=== PATIENT | female | born 1975 | race Two or more races ===

== ENCOUNTER 2019-12-03 15:12 | Emergency (ER) | payer SELFPAY ==
[~2019-12-03] VITALS: Ht 162.6 cm; Wt 79.0 kg
[2019-12-03 15:29] VITALS: BP 147/75
== END 2019-12-03 16:16 | disposition home or self-care (01) ==
LOC: ED 16:00
DX: J06.9 Acute upper respiratory infection, unspecified (principal)
CPT/HCPCS: 71046; 99283

== ENCOUNTER 2020-06-02 16:10 | Emergency (ER) | payer SELFPAY ==
[~2020-06-02] VITALS: Ht 162.6 cm; Wt 82.9 kg
--- NOTE | 2020-06-02 16:45 | NUR ---
this is a 44 yr old female. came in to the er due to what she discribes as sob and panic attacks. pt states she can't breathe through her nose and it gets worse at night. pt states she has had relief from hot showers and nasal mist. other than afrin pt denies any other nasal decongestant. pt on cardiac, nibp and o2 monitoring,. call light in reach. magali
[2020-06-02 18:41] VITALS: BP 110/90
== END 2020-06-02 18:43 | disposition home or self-care (01) ==
LOC: ED 18:35
DX: J02.9 Acute pharyngitis, unspecified (principal); R06.00 Dyspnea, unspecified; M79.10 Myalgia, unspecified site; R05 Cough; R09.89 Other specified symptoms and signs involving the circulatory and respiratory systems; R94.31 Abnormal electrocardiogram [ECG] [EKG]
CPT/HCPCS: 71045; 93005; 99283

== ENCOUNTER 2020-09-12 15:26 | Emergency (ER) | payer SELFPAY ==
[~2020-09-12] VITALS: Ht 162.6 cm; Wt 78.9 kg
[2020-09-12 15:44] VITALS: BP 140/97
== END 2020-09-12 16:47 | disposition home or self-care (01) ==
LOC: ED 16:40
DX: B34.9 Viral infection, unspecified (principal); Z20.828 Contact with and (suspected) exposure to other viral communicable diseases; F17.200 Nicotine dependence, unspecified, uncomplicated
CPT/HCPCS: 36415; 87635; 99283

== ENCOUNTER 2020-11-02 20:03 | Inpatient (IN) | payer OTHER ==
[~2020-11-02] VITALS: Ht 162.6 cm; Wt 70.6 kg
--- NOTE | 2020-11-02 20:59 | NUR ---
PT AMBULATORY TO BATHROOM FOR UA, STEADY GAIT.
[2020-11-02 21:13] LABS: BASOPHILS % (AUTO) 1 % (0-1); EOSINOPHILS % (AUTO) 4 % (1-7); LYMPHOCYTES % (AUTO) 26 % (22-44); MEAN CORPUSCULAR HEMOGLOBIN 21.5 pg (27.0-34.8); MEAN CORPUSCULAR HGB CONC 31.4 g/dL (32.4-35.8); MEAN PLATELET VOLUME 7.7 fL (7.4-10.4); MONOCYTES % (AUTO) 8 % (2-9); NEUTROPHILS % (AUTO) 61 % (42-75); PLATELET COUNT 283 x10^3/uL (130-400); RED BLOOD COUNT 4.52 x10^6/uL (3.82-5.3); RED CELL DISTRIBUTION WIDTH 17.4 % (9.6-15.2)
[2020-11-02 21:14] LABS: ALBUMIN 3.4 g/dL (3.4-5.0); ANION GAP 4 mmol/L (5-15); CHLORIDE 110 mmol/L (98-107)
[2020-11-02 21:17] LABS: ALANINE AMINOTRANSFERASE 25 U/L (12-78); ALKALINE PHOSPHATASE 88 U/L (45-117); BILIRUBIN,TOTAL 0.3 mg/dL (0.2-1.0); CREATININE 0.84 mg/dL (0.55-1.02)
[2020-11-02 21:28] LABS: MICROSCOPIC INDICATED
[2020-11-02 21:30] LABS: MD NO
[2020-11-02] MEDS ORDERED: OMNIPAQUE 350 MG/ML, 100ML BOTTLE ONE (21:30)
--- NOTE | 2020-11-02 21:39 | NUR ---
PT REMAINS LAYING IN BED, CONNECTED TO BP AND O2 MONITORS. CALL LIGHT IN REACH. DENIED PAIN MEDS. NADN.
[2020-11-02] MEDS ORDERED: KETOROLAC 30 MG/1 ML ONE (22:46)
[2020-11-02] MEDS ORDERED: KETOROLAC 30 MG/1 ML IVPush ONE (23:00)
--- NOTE | 2020-11-02 23:02 | NUR ---
LATRELL. PT CRYING AFTER ERP BACK TO BEDSIDE TO UPDATE PT ON CT READ. AT BEDSIDE. PT HAS CALL LIGHT IN REACH, AND IS IN POSITION OF COMFORT.
--- NOTE | 2020-11-02 23:25 | NUR ---
PT'S FEARS ADDRESSED. FIRST ATTEMPT TO CALL REPORT.
--- NOTE | 2020-11-02 23:48 | NUR ---
REPORT TO MINDY AL.
[2020-11-03] MEDS ORDERED: ACETAMINOPHEN 325 MG TABLET PO PRN
[2020-11-03] MEDS ORDERED: BISACODYL 10 MG SUPP PR PRN
[2020-11-03] MEDS ORDERED: POLYETHYLENE GLYCOL 17 GM PACKET PO PRN
[2020-11-03] MEDS ORDERED: ONDANSETRON 2MG/ML, 2ML IVPush PRN
[2020-11-03] MEDS ORDERED: morphine SULFATE 10 MG/ML, 1ML IVPush PRN
[2020-11-03 00:12] VITALS: BP 129/80
[2020-11-03] MEDS: SODIUM CHLORIDE FLUSH 10ML SYR IVF SCH ×2 (00:24→07:49)
[2020-11-03 02:22] VITALS: BP 107/62
[2020-11-03 05:44] LABS: BASOPHILS % (AUTO) 0 % (0-1); EOSINOPHILS % (AUTO) 4 % (1-7); LYMPHOCYTES % (AUTO) 37 % (22-44); MEAN CORPUSCULAR HEMOGLOBIN 21.6 pg (27.0-34.8); MEAN CORPUSCULAR HGB CONC 31.6 g/dL (32.4-35.8); MEAN PLATELET VOLUME 7.9 fL (7.4-10.4); MONOCYTES % (AUTO) 7 % (2-9); NEUTROPHILS % (AUTO) 52 % (42-75); PLATELET COUNT 260 x10^3/uL (130-400); RED CELL DISTRIBUTION WIDTH 17.4 % (9.6-15.2)
[2020-11-03 05:49] LABS: MD NO
[2020-11-03 05:51] LABS: ANION GAP 5 mmol/L (5-15); CHLORIDE 111 mmol/L (98-107); CREATININE 0.79 mg/dL (0.55-1.02)
[2020-11-03 07:09] VITALS: BP 107/69
[2020-11-03] MEDS ORDERED: SENNA/DOCUSATE TABLET PO SCH (09:00)
[2020-11-03] MEDS ORDERED: CEFD300C37 PO (13:15)
[2020-11-03] MEDS ORDERED: CEFTRIAXONE PMX 2GM/50ML 50 ML IVPB SCH (13:30)
[2020-11-03] MEDS ORDERED: CEFTRIAXONE PMX 2GM/50ML 50 ML IVPB ONE (13:30)
[2020-11-03 13:52] VITALS: BP 119/79
[2020-11-03] MEDS ORDERED: FERR324T5 PO (17:08)
== END 2020-11-03 16:10 | disposition home or self-care (01) | DRG 690 ==
LOC: ED 21:20 → EDIP 11-03 00:05 → 4NW 11-03 00:06 → DCLOUNGE 11-03 16:00
PROVIDERS: ADMIT Family Medicine; ATTEND Family Medicine
DX: N39.0 Urinary tract infection, site not specified (principal); D25.9 Leiomyoma of uterus, unspecified; D50.9 Iron deficiency anemia, unspecified; F17.210 Nicotine dependence, cigarettes, uncomplicated; K57.30 Diverticulosis of large intestine without perforation or abscess without bleeding; K59.00 Constipation, unspecified; Z82.49 Family history of ischemic heart disease and other diseases of the circulatory system; Z98.51 Tubal ligation status
CPT/HCPCS: 36415; 74177; 80048; 80053; 81001; 82728; 83540; 83550; 84703; 85025; 87086; 87147; J0696; J1885; Q9967; J2270

== ENCOUNTER 2021-08-04 09:10 | Outpatient (CLI) | payer MEDICAID ==
[~2021-08-04 09:10] MED LIST: CEFD300C37 PO; FERR324T5 PO
[2021-08-04] MEDS ORDERED: OMNIPAQUE 350 MG/ML, 100ML BOTTLE ONE (09:42)
== END 2021-08-04 23:59 | disposition home or self-care (01) ==
LOC: CFH 09:10 → RAD 23:59
PROVIDERS: ATTEND Student in an Organized Health Care Education/Training Program
DX: N28.89 Other specified disorders of kidney and ureter (principal); M41.84 Other forms of scoliosis, thoracic region
CPT/HCPCS: 71046; 74170; Q9967